=== PATIENT | male | born 1950 | race Caucasian/White ===

== ENCOUNTER → 2018-07-09 | Outpatient (CLI) | payer MEDICARE, OTHER ==
--- NOTE | 2018-07-09 13:56 | ECHOS ---
STRESS ECHOCARDIOGRAM INDICATIONS: Chest pain. MEDICATIONS: Atorvastatin, amlodipine, Benazepril. BASELINE HEART RATE: 89 BASELINE BLOOD PRESSURE: 129/43 MAXIMUM HEART RATE: 149 MAXIMUM BLOOD PRESSURE: 194/53 85% MPHR: 129 100% MPHR: 152 METS: 8.5 MAXIMUM STAGE REACHED: 3 TOTAL EXERCISE TIME: 7:00 CLINICAL INFORMATION: Baseline rhythm is sinus mechanism, rate of 89, normal axis and intervals, poor R-wave progression. Baseline blood pressure 125/43 mmHg. Patient exercised on Tani protocol for 7 minutes reaching peak rate of 149 beats per minute which is equal to 98% maximum predicted heart rate. Peak blood pressure 194/53 mmHg. Test was terminated secondary to fatigue. There was no chest pain. Electrocardiograph monitoring revealed no evidence of diagnostic ischemic ST deviation. FINDINGS: Baseline echocardiogram revealed normal wall thickening and motion. At peak exercise, there was normal wall motion and augmentation with no hypokinesis or dyskinesis. CONCLUSION: 1. Good exercise tolerance with normal electrocardiograph response to exercise. 2. Normal stress echocardiogram with no evidence of stress-induced ischemia. MMODL / IJN: [id number] /
== END | disposition home or self-care (01) ==
LOC: RADNMMAIN 10:33
PROVIDERS: ATTEND Internal Medicine
DX: R07.9 Chest pain, unspecified (principal)
CPT/HCPCS: 93351

== ENCOUNTER → 2022-01-05 | Outpatient (CLI) | payer MEDICARE ==
--- NOTE | 2022-01-05 12:06 | CT ---
EXAMINATION TYPE: CT brain wo con DATE OF EXAM: 01/05/2022 COMPARISON: None HISTORY: Episodic lightheadedness, benign vertigo CT DLP: 1101.0 mGycm Automated exposure control for dose reduction was used. FINDINGS: Ventricular system is midline. There is no acute hemorrhage or mass effect. No midline shift. Calvarium intact. Craniocervical junction maintained. Partially empty sella turcica. Changes of chron ic sinusitis. IMPRESSION: NO ACUTE PROCESS AND SYMPTOMS PERSIST CONSIDER MRI CHRONIC SINUSITIS.
--- NOTE | 2022-01-05 16:31 | US ---
EXAMINATION TYPE: US carotid duplex BILAT DATE OF EXAM: 01/05/2022 COMPARISON: NONE CLINICAL HISTORY: EPISODIC LIGHTHEADEDNESS R42. intermittent lightheadedness. vertigo EXAM MEASUREMENTS: RIGHT: Peak Systolic Velocity (PSV) cm/sec ----- Right CCA: 109.5 ----- Right ICA: 123.7 ----- Right ECA: 188.4 ICA/CCA ratio: 1.1 RIGHT: End Diastole cm/sec ----- Right CCA: 18.9 ----- Right ICA: 30.5 ----- Right ECA: 15.0 LEFT: Peak Systolic Velocity (PSV) cm/sec ----- Left CCA: 115.8 ----- Left ICA: 128.9 ----- Left ECA: 160.9 ICA/CCA ratio: 1.1 LEFT: End Diastole cm/sec ----- Left CCA: 22.0 ----- Left ICA: 38.3 ----- Left ECA: 18.7 VERTEBRALS (direction of flow): Right Vertebral: Antegrade Left Vertebral: Antegrade Rhythm: Normal Mild plaque bilateral bifurcations. Increased velocities bilateral ECA's, greater on the right IMPRESSION: 1. Atheromatous plaquing thickening present bilaterally. 2. Minimal elevated velocity left internal carotid artery and borderline elevated velocity of the rig ht internal carotid artery. This would suggest narrowing approximately 50% based on velocities. Criteria for Assigning % of Stenosis / Diameter reduction (Estimation based on the indirect measurements of the internal carotid artery velocities (ICA PSV). 1. Normal (no stenosis)=ICA PSV < 125 cm/s: ratio < 2.0: ICA EDV<40 cm/s. 2. Less than 50% stenosis=ICA PSV < 125 cm/s: ratio < 2.0: ICA EDV<40 cm/s. 3. 50 to 69% stenosis=ICA PSV of 125 to 230 cm/s: ration 2.0 ? 4.0: ICA EDV 40-100 cm/s. 4. Greater than 70% stenosis to near occlusion= ICA PSV > 230 cm/s: ratio > 4.0: ICA EDV > 100 cm/s. 5. Near occlusion= ICA PSV velocities may be low or undetectable: variable ratio and ICA EDV. 6. Total occlusion=unable to detect flow.
== END | disposition home or self-care (01) ==
LOC: RADUSWWP 10:50
PROVIDERS: ATTEND Internal Medicine
DX: J32.9 Chronic sinusitis, unspecified (principal); I67.2 Cerebral atherosclerosis
CPT/HCPCS: 70450; 93880

== ENCOUNTER → 2023-12-26 | Outpatient (CLI) | payer MEDICARE | END | disposition home or self-care (01) | LOC: LABWHC1 08:20 | DX: R73.03 Prediabetes (principal) | CPT/HCPCS: 36415; 83036 ==

== ENCOUNTER 2024-04-08 06:25 | Day surgery (SDC) | payer MEDICARE ==
[2024-04-07 09:01] VITALS: BMI 27.8
[2024-04-08] MEDS ORDERED: LIDOCAINE 1% (10MG/ML) FOR IV START INTRADERMA PRN (06:40)
[2024-04-08 06:47] VITALS: TEMP 97.6
[2024-04-08] MEDS: LACTATED RINGERS 1,000 ML IV SCH (07:03)
[2024-04-08] MEDS: IV FLUID CONTINUATION 1,000 ML IV ONE (07:03)
[2024-04-08] MEDS ORDERED: PROPOFOL 10 MG/ML 20 ML VIAL IV ONE (07:32)
--- NOTE | 2024-04-08 07:53 | P.PCN ---
Date of Procedure: 04/08/24 Procedure(s) Performed: Brief history: Patient is a pleasant 73-year-old white male scheduled for an elective upper endoscopy as well as colonoscopy as a part of evaluation of longstanding history of GERD screening for colon cancer. Procedure performed: Esophagogastroduodenoscopy with biopsy Colonoscopy with biopsy biopsy Preoperative diagnosis: Longstanding history of GERD Screening for colon cancer Anesthesia: MAC Procedure: After informed consent was obtained from the patient was brought into the endoscopy unit and IV sedation was administered by anesthesia under continuous monitoring. Initially upper endoscopy was done. The Olympus GF 160 video endoscope was inserted inserted into the mouth and esophagus intubated without any difficulty and was gradually advanced into the stomach and duodenum and carefully examined. The bulb and second part of the duodenum appeared normal. The scope was then withdrawn into the stomach adequately insufflated with air and upon careful examination the antrum had a 5 mm polyp that was biopsied. Rest of the mucosa of the antrum appeared normal. Mucosa of the body, cardia and fundus appeared normal. The scope was then withdrawn into the esophagus. The GE junction was located at 40 cm to the incisors. It appeared regular with no erythema erosions or ulcerations. Rest of the esophagus appeared normal. Patient tolerated the procedure well. At this time the patient continued to remain sedation. Initial digital rectal examination was normal. Olympus CF 160 video colonoscope was then inserted into the rectum and gradually advanced to the cecum without any difficulty. Careful examination was performed as the scope was gradually being withdrawn. The prep was excellent. The cecum, ascending colon, appeared normal in the transverse colon there was a 5 mm sessile polyp removed by cold biopsy. In the descending colon there was a 3 mm polyp that was removed by cold biopsy. In the sigmoid colon there was another 3 mm polyp that was removed by cold biopsy. Rest of the sigmoid colon and rectum appeared normal. Retroflexion was performed in the rectum and no lesions were noted. Patient tolerated the procedure well. Impression: 1. Upper endoscopy revealed 5 mm gastric antral polyp status post biopsy. No evidence of esophagitis or Herrera's esophagus upper 2. Colonoscopy revealed: 5 mm transverse colon polyp status post cold biopsy 3 mm descending colon polyp status post cold biopsy 3 mm sigmoid colon polyp status post cold biopsy Recommendations: Findings of this examination were discussed with the patient as well as his family. He was advised to follow with the biopsy results. Continue with omeprazole as needed and follow antireflux measures. If the biopsy of the colon polyps revealed adenoma, recommend repeat colonoscopy in 5 years
[2024-04-08 08:39] VITALS: BP 118/76; PULSE 83; RESP 17
== END 2024-04-08 08:42 | disposition home or self-care (01) ==
LOC: ORWHC2ENDO 06:25
PROVIDERS: ATTEND Internal Medicine Gastroenterology
DX: Z12.11 Encounter for screening for malignant neoplasm of colon (principal); K21.9 Gastro-esophageal reflux disease without esophagitis; D12.3 Benign neoplasm of transverse colon; D12.4 Benign neoplasm of descending colon; D12.5 Benign neoplasm of sigmoid colon; K31.7 Polyp of stomach and duodenum
CPT/HCPCS: 43239; 45380; 88305; 88342

== ENCOUNTER → 2025-02-05 | Outpatient (CLI) | payer MEDICARE | END | disposition home or self-care (01) | LOC: LABPAT 08:48 | PROVIDERS: ATTEND Surgery | DX: Z01.818 Encounter for other preprocedural examination (principal); K40.90 Unilateral inguinal hernia, without obstruction or gangrene, not specified as recurrent | CPT/HCPCS: 93005 ==

== ENCOUNTER → 2025-02-20 | Outpatient (CLI) | payer MEDICARE ==
[2025-02-20 14:44] LABS: Basophils # (A) 0.05 X 10*3/uL (0.00-0.10); Basophils % (A) 0.9 %; Eosinophils # (A) 0.31 X 10*3/uL (0.04-0.35); Eosinophils % (A) 5.4 %; HCT 42.8 % (39.6-50.0); HGB 14.3 g/dL (13.0-17.0); Immature Grans, Automated 0.20 %; Lymphocytes # (A) 1.55 X 10*3/uL (0.90-5.00); Lymphocytes % (A) 27.0 %; MCH 31.6 pg (27.0-32.0); MCHC 33.4 g/dL (32.0-37.0); MCV 94.7 FL (80.0-97.0); Monocytes # (A) 0.75 X 10*3/uL (0.20-1.00); Monocytes % (A) 13.0 %; NRBC Per 100 WBC 0 X 10*3/uL (0.00-0.01); Neutrophils # (A) 3.08 X 10*3/uL (1.80-7.70); Neutrophils % (A) 53.5 %; Platelet Count 322 X 10*3/uL (140-440); RBC 4.52 X 10*6/uL (4.40-5.60); RDW 12.8 % (11.5-14.5); WBC 5.75 X 10*3/uL (4.50-10.00)
== END | disposition home or self-care (01) ==
LOC: LABPAT 09:19
PROVIDERS: ATTEND Surgery
DX: K40.90 Unilateral inguinal hernia, without obstruction or gangrene, not specified as recurrent (principal); Z01.812 Encounter for preprocedural laboratory examination
CPT/HCPCS: 85025; 86850; 86900; 86901